=== PATIENT | male | born 1975 | race African-American/Black ===

== ENCOUNTER 2017-12-03 19:30 | Emergency (ER) | payer SELFPAY ==
[~2017-12-03] VITALS: Ht 185.4 cm; Wt 95.9 kg
[2017-12-03] MEDS ORDERED: POVIDONE-IODINE 10% 15 ML SOLUTION UD TP ONE (20:15)
[2017-12-03] MEDS ORDERED: IBUPROFEN 800 MG TABLET PO ONE (21:00)
[2017-12-03 21:19] VITALS: BP 124/83
== END 2017-12-03 22:15 | disposition home or self-care (01) ==
LOC: EMS 19:31
DX: S90.31XA Contusion of right foot, initial encounter (principal); S90.32XA Contusion of left foot, initial encounter; B35.3 Tinea pedis; F17.210 Nicotine dependence, cigarettes, uncomplicated; F12.10 Cannabis abuse, uncomplicated; Z88.0 Allergy status to penicillin; Z91.013 Allergy to seafood; V03.90XA Pedestrian on foot injured in collision with car, pick-up truck or van, unspecified whether traffic or nontraffic accident, initial encounter; Y93.89 Activity, other specified; Y92.410 Unspecified street and highway as the place of occurrence of the external cause; Y99.8 Other external cause status
CPT/HCPCS: 99284